=== PATIENT | female | born 1945 | race Caucasian/White ===

== ENCOUNTER 2019-02-26 16:25 | Emergency (ER) | payer MEDICARE, OTHER ==
[~2019-02-26] VITALS: Ht 157.5 cm; Wt 98.4 kg
[~2019-02-26 16:25] MED LIST: Adalat Cc90 MG PO; FURO80 PO; METO2.5 PO; METO25 PO; Novolog100 UNIT/2 SC; Prinivil10 MG PO
[2019-02-26] MEDS ORDERED: Humalog100 UNIT/1 (16:44)
[2019-02-26] MEDS ORDERED: INSULANPEN SC (16:44)
== END 2019-02-26 17:20 | disposition home or self-care (01) ==
LOC: ER 16:25
DX: R55 Syncope and collapse (principal); I12.0 Hypertensive chronic kidney disease with stage 5 chronic kidney disease or end stage renal disease; N18.6 End stage renal disease; E11.22 Type 2 diabetes mellitus with diabetic chronic kidney disease
CPT/HCPCS: 93005; 93010; 99284-25

== ENCOUNTER → 2019-03-21 | Outpatient (CLI) | payer MEDICARE, OTHER ==
[~2019-03-21] MED LIST changes: +Humalog100 UNIT/1; +INSULANPEN SC
[2019-03-21 13:47] LABS: Adenovirus F 40/41 Not Detected (NOT DETECT); Astrovirus Not Detected (NOT DETECT); Campylobacter Sp Not Detected (NOT DETECT); Cryptosporidium Not Detected (NOT DETECT); Cyclospora Cayetanensis Not Detected (NOT DETECT); E. Coli O157 Not Detected (NOT DETECT); Entamoeba Histolytica Not Detected (NOT DETECT); Enteroaggregative E. coli-EAEC Not Detected (NOT DETECT); Enteropathogenic E. coli-EPEC Not Detected (NOT DETECT); Enterotoxigenic E. coli-ETEC Not Detected (NOT DETECT); Giardia Lamblia Not Detected (NOT DETECT); Plesiomonas Shigelloides Not Detected (NOT DETECT); Salmonella Sp Not Detected (NOT DETECT); Shiga Toxin-prod E. coli-STEC Not Detected (NOT DETECT); Shigella/Enteroin E. coli-EIEC Not Detected (NOT DETECT); Vibrio Cholerae Not Detected (NOT DETECT); Vibrio Sp Not Detected (NOT DETECT); Yersinia Enterocolitica Not Detected (NOT DETECT)
[2019-03-21 13:48] LABS: Norovirus GI/GII Not Detected (NOT DETECT); Rotavirus A Not Detected (NOT DETECT); Sapovirus Not Detected (NOT DETECT)
== END | disposition home or self-care (01) ==
LOC: LAB DAV 10:45
PROVIDERS: Internal Medicine Nephrology
DX: A04.72 Enterocolitis due to Clostridium difficile, not specified as recurrent (principal)
CPT/HCPCS: 87507

== ENCOUNTER 2019-04-16 07:04 | Day surgery (SDC) | payer MEDICARE, OTHER ==
[~2019-04-16] VITALS: Ht 167.6 cm; Wt 94.0 kg
[~2019-04-16 07:04] MED LIST changes: +ACET325 PO; +DOCU100 PO; -Humalog100 UNIT/1; +LOSA50 PO; +MIRALAX17 GM PO; +NIFE90ER PO
--- NOTE | 2019-04-16 09:03 | NUR ---
PT VERBALIZED UNDERSTANDING OF VERBAL D/C INST. IV REMOVED. -BLEEDING OR SWELLIN R UPPER CHEST AREA. PT TAKEN OUT OF THE HRT CENTER VIA W/C.
[2019-06-11] MEDS ORDERED: FAMO20 PO (10:28)
[2019-06-11] MEDS ORDERED: Roxicodone5 MG PO (10:34)
== END 2019-04-16 09:10 | disposition home or self-care (01) ==
LOC: MHTC 07:04
DX: Z45.2 Encounter for adjustment and management of vascular access device (principal); E11.22 Type 2 diabetes mellitus with diabetic chronic kidney disease; I13.2 Hypertensive heart and chronic kidney disease with heart failure and with stage 5 chronic kidney disease, or end stage renal disease; I50.9 Heart failure, unspecified; N18.6 End stage renal disease; E11.21 Type 2 diabetes mellitus with diabetic nephropathy; E78.5 Hyperlipidemia, unspecified; E66.01 Morbid (severe) obesity due to excess calories; E11.51 Type 2 diabetes mellitus with diabetic peripheral angiopathy without gangrene; Z88.0 Allergy status to penicillin; Z88.5 Allergy status to narcotic agent
CPT/HCPCS: 36589; J1644; J7040

== ENCOUNTER 2019-06-11 13:55 | Observation (INO) | payer MEDICARE ==
[~2019-06-11] VITALS: Ht 157.5 cm; Wt 93.0 kg
[~2019-06-11 13:55] MED LIST changes: +FAMO20 PO; +Roxicodone5 MG PO
[2019-06-11] MEDS ORDERED: Humalog100 UNIT/1 SC (14:25)
[2019-06-11 15:20] LABS: BASOPHILS ABSOLUTE AUTO 0.02 K/mm3 (0.00-0.23); BASOPHILS PERCENT AUTO 0 % (0-2); EOSINOPHILS ABSOLUTE AUTO 0.02 K/mm3 (0.00-0.68); EOSINOPHILS PERCENT AUTO 0 % (0-6); Hematocrit 37.4 % (33.0-51.0); Hemoglobin 11.7 g/dL (11.5-16.0); IMMATURE GRAN ABSOLUTE AUTO 0.06 K/mm3 (0.00-0.10); IMMATURE GRAN PERCENT AUTO 1 % (0-1); LYMPHOCYTES ABSOLUTE AUTO 0.44 K/mm3 (0.84-5.20); LYMPHOCYTES PERCENT AUTO 3 % (21-46); MONOCYTES ABSOLUTE AUTO 0.69 K/mm3 (0.16-1.47); MONOCYTES PERCENT AUTO 5 % (4-13); Mean Corpuscular HGB 31.6 pg (26.0-34.0); Mean Corpuscular HGB Conc 31.3 g/dL (31.5-36.5); Mean Corpuscular Volume 101 fL (80-100); Mean Platelet Volume 9.9 fL (9.1-12.4); NEUTROPHILS ABSOLUTE AUTO 11.76 K/mm3 (1.96-9.15); NEUTROPHILS PERCENT AUTO 90 % (41-73); Platelet Count 244 K/mm3 (150-400); RDW Coefficient Variation 13.6 % (11.7-14.2); RDW Standard Deviation 50.2 fL (35.1-46.3); White Blood Cell Count 12.99 K/mm3 (4.00-11.30)
[2019-06-11 15:37] LABS: International Normalized Ratio 0.97; Prothrombin Time Results 10.3 Sec (9.7-11.5)
[2019-06-11 15:46] LABS: Bun/Creatinine Ratio 8.8 (12.0-20.0); Calcium, Blood 9.2 mg/dL (8.5-10.1); Creatinine, Blood 6.25 mg/dL (0.40-1.00)
--- NOTE | 2019-06-11 16:48 | NUR ---
PT ADMITTED TO ROOM 304 AT 1605 FROM FILTERING MACHINE TENDER HAVING PERMACATH PLACED RIJ- ORDRE FROM DR REECE TO USE DIALYSIS CATH. CALLED DR LAURENT HANKS CONSULT- CALLED MARY JANE FROM DIALYSIS LAB TO COME RUN PT. CATH SITE WNL WITH GAUZE DRESSING NO MEMATOME, SITE SOFT, NO BLEEDING. L ARM IN IMMOBILIZER. STATES PAIN 03/13- DR LAY AT BEDSIDE. WILL WRITE ADDIDIONAL ORDERS. ABLE TO SQUEEZE HANDS, ABBIE N/T, CMS INTACT ALL EXT. LUNGS CLEAR. CALL TO [facility]AY FOR CONSULT L ISAAC DÍAZ, WILL SEE PT AM 06/12.
[2019-06-11 18:29] LABS: Albumin, Blood 3.5 g/dL (3.4-5.0); Anion Gap 6 mmol/L (6-16); Blood Urea Nitrogen 44 mg/dL (8-24); Bun/Creatinine Ratio 9.2 (12.0-20.0); CO2, Blood 32 mmol/L (21-32); Calcium, Blood 9.4 mg/dL (8.5-10.1); Chloride, Blood 97 mmol/L (98-108); Creatinine, Blood 4.78 mg/dL (0.40-1.00); Glomerular Filtration Rate 9 (60-); Glucose, Blood 157 mg/dL (70-99); Phosphorus, Blood 4.3 mg/dL (2.5-4.9); Potassium, Blood 5.1 mmol/L (3.5-5.5); Sodium, Blood 135 mmol/L (136-145)
[2019-06-12 04:43] LABS: BASOPHILS ABSOLUTE AUTO 0.01 K/mm3 (0.00-0.23); BASOPHILS PERCENT AUTO 0 % (0-2); EOSINOPHILS ABSOLUTE AUTO 0.31 K/mm3 (0.00-0.68); EOSINOPHILS PERCENT AUTO 3 % (0-6); Hematocrit 30.3 % (33.0-51.0); Hemoglobin 9.7 g/dL (11.5-16.0); IMMATURE GRAN ABSOLUTE AUTO 0.03 K/mm3 (0.00-0.10); IMMATURE GRAN PERCENT AUTO 0 % (0-1); LYMPHOCYTES PERCENT AUTO 14 % (21-46); MONOCYTES ABSOLUTE AUTO 0.89 K/mm3 (0.16-1.47); MONOCYTES PERCENT AUTO 9 % (4-13); Mean Corpuscular HGB 31.3 pg (26.0-34.0); Mean Platelet Volume 10.1 fL (9.1-12.4); NEUTROPHILS ABSOLUTE AUTO 7.16 K/mm3 (1.96-9.15); NEUTROPHILS PERCENT AUTO 73 % (41-73); Platelet Count 224 K/mm3 (150-400); RDW Coefficient Variation 13.8 % (11.7-14.2); RDW Standard Deviation 48.8 fL (35.1-46.3)
[2019-06-12 04:47] LABS: Mean Corpuscular Volume 98 fL (80-100)
--- NOTE | 2019-06-12 04:58 | NUR ---
SHIFT SUMMARY: PT IS ALERT AND ORIENTED. PT IS CALM AND COOPERATIVE WITH CARE. PT CALLS APPROPRIATELY. PT IS ON BEDREST, USING THE BEDPAN NEEDED. PT REPORTS L. ARM PAIN, MEDICATING PER EMAR. PT DENIES NAUSEA, VOMITING, AND SOB. PT SLEPT VERY LITTLE OVERNIGHT. NO ACUTE CHANGES OR COMPLICATIONS THIS SHIFT. BED IN LOW POSITION, CALL LIGHT WITHIN REACH. WILL CONTINUE TO MONITOR.
[2019-06-12 05:02] LABS: Albumin, Blood 2.8 g/dL (3.4-5.0); Anion Gap 7 mmol/L (6-16); Blood Urea Nitrogen 56 mg/dL (8-24); Bun/Creatinine Ratio 8.3 (12.0-20.0); CO2, Blood 31 mmol/L (21-32); Calcium, Blood 8.5 mg/dL (8.5-10.1); Chloride, Blood 97 mmol/L (98-108); Creatinine, Blood 6.73 mg/dL (0.40-1.00); Glomerular Filtration Rate 6 (60-); Glucose, Blood 175 mg/dL (70-99); Magnesium, Blood 2.2 mg/dL (1.6-2.4); Potassium, Blood 4.8 mmol/L (3.5-5.5); Sodium, Blood 135 mmol/L (136-145)
--- NOTE | 2019-06-12 17:26 | NUR ---
SHIFT SUMMARY NO ACUTE CONCERNS FROM THE PATIENT. DR. APONTE WANTS OT DO ANOTHER CT OF HER SHOULDER IN THE AM IN ORDER TO DETERMINE HOW BAD THE BREAK IS. HE HAS NO URGENT SURGICAL PLANS. HE WOULD LIKE THE PATIENT TO BE UP AND MOVING MUCH THE PAIN WILL LET HER. PATIENT IS HAPPY WITH THIS PLAN AT THIS TIME.
--- NOTE | 2019-06-13 03:40 | NUR ---
NOC SHIFT SUMMARY PT IS PLEASANT AND COOPERATIVE WITH CARE. ADMITTED WITH L HUMERUS AND PELVIC FX. TREATED FOR PAIN PER EMAR. SHE HAS SLEPT OFF AND ON THROUGH THE NIGHT. SHE GETS ANXIOUS AND IS AFRAID OF FALLING OUT OF BED. VSS. PRESENLTY APPEARS TO BE SLEEPING. WILL CONTINUE TO MONITOR.
[2019-06-13 04:38] LABS: Hematocrit 31.5 % (33.0-51.0); Hemoglobin 10.1 g/dL (11.5-16.0)
[2019-06-13 05:01] LABS: Albumin, Blood 2.9 g/dL (3.4-5.0); Anion Gap 8 mmol/L (6-16); Blood Urea Nitrogen 44 mg/dL (8-24); Bun/Creatinine Ratio 8.5 (12.0-20.0); CO2, Blood 32 mmol/L (21-32); Calcium, Blood 8.9 mg/dL (8.5-10.1); Chloride, Blood 97 mmol/L (98-108); Creatinine, Blood 5.19 mg/dL (0.40-1.00); Glomerular Filtration Rate 9 (60-); Glucose, Blood 72 mg/dL (70-99); Magnesium, Blood 2.1 mg/dL (1.6-2.4); Phosphorus, Blood 5.3 mg/dL (2.5-4.9); Potassium, Blood 4.1 mmol/L (3.5-5.5); Sodium, Blood 137 mmol/L (136-145)
--- NOTE | 2019-06-13 16:52 | NUR ---
SHIFT SUMMARY PATIENT IS PLEASANT, EVALUATED BY PT TODAY. DR. APONTE STATED HE WOULD BE BACK TOMORROW TO SEE THE PATIENT FIRST THING IN THE MORNING. NO ACUTE CONCERNS. PATIENTS PAIN HAS BEEN MANAGED MOSTLY WITH REPOSITIONING. AT THIS TIME SHE HAS NO COMPLAINTS AND I WILL CONTINUE TO UPDATE NEEDED.
--- NOTE | 2019-06-14 03:59 | NUR ---
NOC SHIFT SUMMARY PT ADMITTED FOR HUMERUS FX. HER LEFT ARM IN IN AN IMMOBILIZER. SHE HAS BEEN ENCOURAGED TO MOVE ABOUT MUCH TOLERATED THOUGH MOSTLY HAS ONLY MOVED AROUND IN BED. SHE HAS BEEN ASSISTED IN REPOSITOINING THROUGH THE NIGHT. HAS BEEN TREATED FOR PAIN PER EMAR. WAS FOUND TO BE HYPERTENSIVE ON NIGHT VITALS CHECK. CALLED TO HOSPITALIST AND RECIEVED ORDERS FOR HYDRALAZINE AND REQUIP PT COMPLAINED OF LEG CRAMPS WELL. RECHECK BP SYSTOLIC 132. PRESENLTY LYING IN BED AND APPEARS IN NO ACUTE DISTRESS. WILL CONTINUE TO MONITOR.
[2019-06-14 05:22] LABS: Hematocrit 28.3 % (33.0-51.0); Hemoglobin 9.3 g/dL (11.5-16.0)
[2019-06-14 05:42] LABS: Albumin, Blood 2.7 g/dL (3.4-5.0); Anion Gap 9 mmol/L (6-16); Blood Urea Nitrogen 66 mg/dL (8-24); Bun/Creatinine Ratio 10.2 (12.0-20.0); CO2, Blood 28 mmol/L (21-32); Calcium, Blood 8.8 mg/dL (8.5-10.1); Chloride, Blood 97 mmol/L (98-108); Glomerular Filtration Rate 7 (60-); Glucose, Blood 170 mg/dL (70-99); Magnesium, Blood 2.1 mg/dL (1.6-2.4); Phosphorus, Blood 5.6 mg/dL (2.5-4.9); Potassium, Blood 4.8 mmol/L (3.5-5.5); Sodium, Blood 134 mmol/L (136-145)
--- NOTE | 2019-06-14 17:58 | NUR ---
SHIFT SUMMARY PATIENT IS PLEASANT NO ACUTE CONCERNS AT THIS TIME. SHE IS SITTING AT THE BEDSIDE AND WHEN IN BED SHE REQUESTS THAT ALL 4 BEDRAILS ARE UP FOR SAFETY. HER PAIN IS MANAGED WITH PAIN MEDICATIONS, PATIENT IS NON-SURGICAL FRACTURES.
--- NOTE | 2019-06-15 03:36 | NUR ---
NOC SHIFT SUMMARY PT IS PLEASANT AND COOPERATIVE WITH CARE. ANXIOUS AT TIMES. SHE WAS ADMITTED FOR LEFT HIP AND HUMERUS FX. PER ORTHO NOTE, LIKELY TO BE TREATED NONSURGICALLY. SHE HAS BEEN TREATED FOR PAIN PER EMAR TO GOOD EFFECT. BP SYSTOLIC OVER 160, TREATED PER EMAR. SHE WAS HELPED TO THE BEDSIDE COMODE DURING SHIFT CHANGE. WHILE THIS WAS DIFFICULT FOR HER, HER MOBILITY SEEMS TO BE SLIGHTLY IMPROVED COMPAIRED TO PREVIOUS NIGHTS. AT THIS TIME APPEARS IN NO ACUTE DISTRESS. WILL CONTINUE TO MONITOR.
[2019-06-15 04:24] LABS: Hematocrit 27.3 % (33.0-51.0); Hemoglobin 8.8 g/dL (11.5-16.0)
[2019-06-15 04:41] LABS: Albumin, Blood 2.5 g/dL (3.4-5.0); Anion Gap 8 mmol/L (6-16); Blood Urea Nitrogen 55 mg/dL (8-24); Bun/Creatinine Ratio 11.1 (12.0-20.0); CO2, Blood 32 mmol/L (21-32); Calcium, Blood 8.7 mg/dL (8.5-10.1); Chloride, Blood 99 mmol/L (98-108); Creatinine, Blood 4.96 mg/dL (0.40-1.00); Glomerular Filtration Rate 9 (60-); Glucose, Blood 118 mg/dL (70-99); Magnesium, Blood 2.2 mg/dL (1.6-2.4); Phosphorus, Blood 5.1 mg/dL (2.5-4.9); Potassium, Blood 4.1 mmol/L (3.5-5.5); Sodium, Blood 139 mmol/L (136-145)
--- NOTE | 2019-06-15 19:34 | NUR ---
SHIFT SUMMARY PT WORKED WITH PHYSICAL THERAPY THIS SHIFT. PT SAT UP IN CHAIR FOR LUNCH AND DINNER. PT CALLS APPROPRIATELY. MEDICATED FOR PAIN X2 THIS SHIFT. NO ACUTE CHANGES. CALL LIGHT IN REACH AND BED ALARM ON FOR SAFETY. REPORT GIVEN TO GILA MARTINEZ.
[2019-06-16 04:59] LABS: Hematocrit 27.5 % (33.0-51.0); Hemoglobin 8.8 g/dL (11.5-16.0)
[2019-06-16 05:21] LABS: Albumin, Blood 2.6 g/dL (3.4-5.0); Anion Gap 10 mmol/L (6-16); Blood Urea Nitrogen 77 mg/dL (8-24); Bun/Creatinine Ratio 12.1 (12.0-20.0); CO2, Blood 27 mmol/L (21-32); Calcium, Blood 8.9 mg/dL (8.5-10.1); Chloride, Blood 97 mmol/L (98-108); Creatinine, Blood 6.39 mg/dL (0.40-1.00); Glomerular Filtration Rate 7 (60-); Glucose, Blood 90 mg/dL (70-99); Magnesium, Blood 2.1 mg/dL (1.6-2.4); Phosphorus, Blood 6.1 mg/dL (2.5-4.9); Potassium, Blood 4.2 mmol/L (3.5-5.5); Sodium, Blood 134 mmol/L (136-145)
--- NOTE | 2019-06-16 06:09 | NUR ---
SUMMARY: A/OX4, CALLS APPROPRIATELY AND SPECIFIES NEEDS. SHE WAS MEDICATED W/NORCO X1 FOR TOLERABLE CONTROL OF L.HIP PAIN. PT USED 50% WT.BEARING AND HEMIWALKER W/ASSISST OOB. SHE REMAINS ANXIOUS REGARDING GETTING UP BUT DID BETTER W/ENCOURAGEMENT. SHE ALSO USED BEDPAN PER REQUEST AT TIMES. WAS HERE AT START OF SHIFT TO DISCUSS HER CARE BUT NO CHANGES WERE MADE. NO ACUTE CHANGES, VSS/AFEBRILE. PT TO HAVE HEMODIALYSIS TODAY W/FISTULA PRESENT TO L.ARM, THRILLS/BRUITS INTACT. PT DENIED COMPLAINTS OTHER THEN SINLE EPISODE OF PAIN. WCTM AND REPORT TO DAY RN.
--- NOTE | 2019-06-16 16:42 | NUR ---
SHIFT SUMMARY PT WORKED WITH PHYSICAL THERAPY THIS SHIFT. PT HAS BEEN IN CHAIR FOR ALL MEALS. MEDICATED FOR PAIN X2 PER EMAR THIS SHIFT. PT HAD DIALYSIS THIS AM. DR. APONTE INTO SEE PT THIS EVENING. NO NEW ORDERS AT THIS TIME. NO ACUTE CHANGES THIS SHIFT. CALL LIGHT IN REACH. WILL CONTINUE TO MONITOR AND REPORT TO ONCOMING RN.
[2019-06-17 04:58] LABS: Hematocrit 28.3 % (33.0-51.0); Hemoglobin 9.1 g/dL (11.5-16.0)
[2019-06-17 05:13] LABS: Albumin, Blood 2.5 g/dL (3.4-5.0); Anion Gap 10 mmol/L (6-16); Blood Urea Nitrogen 68 mg/dL (8-24); Bun/Creatinine Ratio 12.8 (12.0-20.0); CO2, Blood 30 mmol/L (21-32); Calcium, Blood 8.8 mg/dL (8.5-10.1); Chloride, Blood 98 mmol/L (98-108); Glomerular Filtration Rate 8 (60-); Glucose, Blood 89 mg/dL (70-99); Magnesium, Blood 2.2 mg/dL (1.6-2.4); Phosphorus, Blood 5.4 mg/dL (2.5-4.9); Potassium, Blood 4.3 mmol/L (3.5-5.5); Sodium, Blood 138 mmol/L (136-145)
--- NOTE | 2019-06-17 06:27 | NUR ---
SHIFT SUMMARY: 74 Y/O OBESE FEMALE RESTED COMFORTABLY ALL SHIFT, C/O LEFT PELVIS/HUMERUS PAIN / AND GIVEN NORCO 5/325MG PO X 1 WITH PAIN RELIEF FELT, ALERT AND ORIENTED X4, BED ALARM APPLIED, BED LOW POSITION, CALL LIGHT AT SIDE.
--- NOTE | 2019-06-17 19:08 | NUR ---
PT. UP IN CHAIR, HAS BEEN THERE MOST OF THE DAY. DR. APONTE ORDERED HIP XRAY WHICH WAS DONE TODAY. HAVE NOT HAD TO COVER BEFORE MEAL BLOOD SUGARS TODAY BUT HAVE GIVEN THE 5 UNITS POST MEAL. ARMAND CLAUDIO TALKING ABOUT PT. GOOING TO FOSTER CARE. PT. AGREEABLE
--- NOTE | 2019-06-18 04:38 | NUR ---
SHIFT SUMMARY: 74 Y/O FEMALE RESTED COMFORTABLY ALL SHIFT, PT UTILIZED BSC AND REQUIRED ASSISTANCE X 2 WITH PATIENT ONLY ABLE TO STAND AND TRANSFER SHORT DISTANCE, C/O LEFT HIP PAIN RATED 6/10 AND GIVEN NORCO 5/325MG PO X 1 WITH PAIN RELIEF FELT, HAPPY AND COOPERATIVE, ALERT AND ORIENTED X 4; BED ALARM APPLIED, BED LOW POSITION, CALL LIGHT AT SIDE DIALYSIS PENDING FOR TODAY.
--- NOTE | 2019-06-18 19:15 | NUR ---
PT. BACK IN BE AFTER BEING UP FOR DINNER. PT. TO DIALYSIS TODAY AT 0900 AND CAME BACK AT 1234. 1500 ML REMOVED. IMMOBILIZER ON HANDY LOSENED AND CLEANED UNDER, BECOMING RED IN AREA POWDER APPLIED. IMMOBILIZER TO BE KEPT ON ALWAYS. CAN REMOVE WHEN PT UP IN CHAIR ONLY AND ARM NEEDS TO BE KEPT STRAIGHT. CAN CLEAN UNDER IMMOBILIZER AND PLACE BACK IMMEDIATELY AFTER SHE DRIES. PER DR. APONTE. NO OTHER NOTEABLE CHANGES.
--- NOTE | 2019-06-18 22:33 | NUR ---
DR MANCILLA AT BEDSIDE
--- NOTE | 2019-06-19 04:03 | NUR ---
SHIFT SUMMARY: 74 Y/O OBESE MALE RESTED COMFORTABLY ALL SHIFT, PT GIVEN COMPLETE BED BATH AT BEGINNING OF SHIFT BY CRUZITO AND THIS NURSE, PTS NOTED TO HAVE BILATERAL FEET WITH LONG TOE NAILS THAT ARE THICK, LONG AND REQUIRE PODIATRY CONSULT, ABLE TO STAND, PIVOT AND TRANSFER TO BSC X 2 ASSIST WITH DEVON WALKER WITH MUCH STRUGGLE EACH TIME, C/O LEFT HIP/ARM PAIN 6/10 WITH NORCO X 1 GIVEN TWICE WITH PAIN RELIEF FELT, DENIES NAUSEA, ALERT AND ORIENTED X 4, BED LOW POSITION, CALL LIGHT AT SIDE, REPORT GIVEN TO MICHELLE MARKHAM.
[2019-06-19 05:04] LABS: Hematocrit 28.5 % (33.0-51.0); Hemoglobin 9.1 g/dL (11.5-16.0)
[2019-06-19 05:34] LABS: Albumin, Blood 2.5 g/dL (3.4-5.0); Anion Gap 11 mmol/L (6-16); Blood Urea Nitrogen 62 mg/dL (8-24); Bun/Creatinine Ratio 14.4 (12.0-20.0); CO2, Blood 29 mmol/L (21-32); Calcium, Blood 8.6 mg/dL (8.5-10.1); Chloride, Blood 101 mmol/L (98-108); Creatinine, Blood 4.32 mg/dL (0.40-1.00); Glomerular Filtration Rate 11 (60-); Glucose, Blood 78 mg/dL (70-99); Magnesium, Blood 2.2 mg/dL (1.6-2.4); Phosphorus, Blood 5.2 mg/dL (2.5-4.9); Potassium, Blood 4.1 mmol/L (3.5-5.5); Sodium, Blood 141 mmol/L (136-145)
--- NOTE | 2019-06-19 06:35 | NUR ---
pt continues to co lt pelvis lt hip, lt shoulder and lt humerus pain. Medicated with tylenol 650 mg for breakthrough pain with helpful effect. She co constipation and 10 mg dulcolax tabs given for constipation. await effect.
--- NOTE | 2019-06-19 19:04 | NUR ---
SHIFT SUMMARY NO ACUTE CONCERNS FROM THE PATIENT AT THIS TIME. SHE DENIES PAIN AND IS WORKING ONE PERSON ASSIST TO THE BEDSIDE COMMODE. CURRENTLY IN THE RECLINER WHICH HAS MADE HER MORE COMFORTABLE.
--- NOTE | 2019-06-20 04:16 | NUR ---
SHIFT SUMMARY: 74 Y/O OBESE FEMALE UTILIZED BSC AND SAT IN CHAIR FEW HOURS THIS SHIFT AND REQUIRED ONE STANDBY ASSIST WITH GAIT BELT AND DEVON-WALKER, C/O LEFT HIP PAIN RATED 6/10 AND TOOK NORCO 5/325MG PO X 1 WITH PAIN RELIEF FELT, DENIES NAUSEA, ALERT AND ORIENTED X 4, WEARING LEFT ARM IMMOBILIZER, BED LOW POSITION, CALL LIGHT AT SIDE.
[2019-06-20 04:46] LABS: Hematocrit 27.1 % (33.0-51.0); Hemoglobin 8.7 g/dL (11.5-16.0)
[2019-06-20 05:05] LABS: Magnesium, Blood 2.2 mg/dL (1.6-2.4)
[2019-06-20 05:06] LABS: Albumin, Blood 2.5 g/dL (3.4-5.0); Anion Gap 9 mmol/L (6-16); Blood Urea Nitrogen 60 mg/dL (8-24); Bun/Creatinine Ratio 14.8 (12.0-20.0); CO2, Blood 29 mmol/L (21-32); Calcium, Blood 8.8 mg/dL (8.5-10.1); Chloride, Blood 102 mmol/L (98-108); Creatinine, Blood 4.06 mg/dL (0.40-1.00); Glomerular Filtration Rate 11 (60-); Glucose, Blood 93 mg/dL (70-99); Phosphorus, Blood 4.7 mg/dL (2.5-4.9); Potassium, Blood 4.2 mmol/L (3.5-5.5); Sodium, Blood 140 mmol/L (136-145)
--- NOTE | 2019-06-20 17:16 | NUR ---
PATIENT IS ALERT AND ORIENTED AND COOPERATIVE WITH CARE. LEFT HIP PAIN TREATED PER EMAR AT PATIENTS REQUEST. PATIENT HAS COMPLAINED OF FEELING CONSTIPATED, PRN STOOL SOFTENERS WERE GIVEN WITH MORNING MEDS AND A PRUNE JUICE WAS GIVEN TO THE PATIENT. NO DIALYSIS TODAY. SHE WORKED WITH PHYSICAL THERAPY TODAY, 2PA TRANSFERRING FROM BSC, 1PA WHEN TRANSFERRING FROM BED TO CHAIR. IMMOBILIZER TO LEFT ARM. WILL CONTINUE TO MONITOR
--- NOTE | 2019-06-21 00:50 | NUR ---
PT HAD LARGE BM X 5 THIS SHIFT AND NOW HAVING DIARRHEA, DR MARISCAL NOTIFIED WITH ORDERS IMODIUM 4MG X 1 NOW.
--- NOTE | 2019-06-21 04:50 | NUR ---
SHIFT SUMMARY: 74 Y/O FEMALE C/O BEGINING OF SHIFT OF NO BM IN "LONG TIME" AND VOICED THAT THE STOOL SOFTENERS WERE NOT WORKING, DRANK PRUNE/APPLE JUICE WARMED UP WITH 3 TABLESPOONS OF BUTTER THAT WAS WARMED IN MICROWAVE, PT HAD BM X 5 LARGE FORMED BROWN STOOL FOLLOWED BY DIARRHEA X 3, DR MARISCAL NOTIFIED WITH IMODIUM 4MG PO GIVEN WITH NO MORE DIARRHEA NOTED, PT VOICED THAT SHE FEELS ALOT BETTER, C/O LEFT HIP PAIN RATED 6/10 WITH NORCO 5/325MG PO GIVEN WITH PAIN RELIEF FELT, DENIES NAUSEA, ABLE TO STAND, PIVOT AND TRANSFER TO BSC X 1 STANDBY ASSIST WITH ACTIVITY TOLERATED WELL, ALERT AND ORIENTED X 4, BED LOW POSITION, CALL LIGHT AT SIDE.
[2019-06-21 05:03] LABS: BASOPHILS ABSOLUTE AUTO 0.01 K/mm3 (0.00-0.23); BASOPHILS PERCENT AUTO 0 % (0-2); EOSINOPHILS ABSOLUTE AUTO 0.33 K/mm3 (0.00-0.68); EOSINOPHILS PERCENT AUTO 3 % (0-6); Hematocrit 28.1 % (33.0-51.0); IMMATURE GRAN ABSOLUTE AUTO 0.11 K/mm3 (0.00-0.10); IMMATURE GRAN PERCENT AUTO 1 % (0-1); LYMPHOCYTES PERCENT AUTO 15 % (21-46); MONOCYTES ABSOLUTE AUTO 0.96 K/mm3 (0.16-1.47); MONOCYTES PERCENT AUTO 8 % (4-13); Mean Corpuscular HGB 30.7 pg (26.0-34.0); Mean Corpuscular Volume 96 fL (80-100); Mean Platelet Volume 9.5 fL (9.1-12.4); NEUTROPHILS ABSOLUTE AUTO 8.56 K/mm3 (1.96-9.15); NEUTROPHILS PERCENT AUTO 73 % (41-73); Platelet Count 306 K/mm3 (150-400); RDW Coefficient Variation 13.5 % (11.7-14.2); RDW Standard Deviation 48.1 fL (35.1-46.3); Red Blood Cell Count 2.93 M/mm3 (3.80-5.20); White Blood Cell Count 11.67 K/mm3 (4.00-11.30)
[2019-06-21 05:26] LABS: Albumin, Blood 2.7 g/dL (3.4-5.0); Anion Gap 8 mmol/L (6-16); Blood Urea Nitrogen 77 mg/dL (8-24); Bun/Creatinine Ratio 15.9 (12.0-20.0); CO2, Blood 27 mmol/L (21-32); Calcium, Blood 9.1 mg/dL (8.5-10.1); Chloride, Blood 101 mmol/L (98-108); Creatinine, Blood 4.84 mg/dL (0.40-1.00); Glomerular Filtration Rate 9 (60-); Glucose, Blood 98 mg/dL (70-99); Phosphorus, Blood 5.3 mg/dL (2.5-4.9); Potassium, Blood 4.6 mmol/L (3.5-5.5); Sodium, Blood 136 mmol/L (136-145)
--- NOTE | 2019-06-21 18:53 | NUR ---
SHIFT SUMMARY PATIENT SLEPT IN, THEN SAT IN CHAIR MOST OF THE DAY. SHE C/O MODERATE L HIP AND L SHOULDER PAIN, RECEIVING NORCO Q4 WHICH CONTROLLED HER PAIN. +2 PULSES AND GOOD SENSATION IN ALL EXTREMITIES. OPEN COCCYX WOUND/EXCORIATION WAS CLEANED AND PROTECTIVE CREAM APPLIED. PT HAD A COUPLE SOFT STOOLS IN SHIFT. BLOOD SUGARS WNL, VSS. PT TRANSFERS TO COMMODE WITH 1 ASSIST AND 4 FOOTED CANE. PT CALLS APPROPRIATELY, CALL LIGHT IN REACH.
--- NOTE | 2019-06-22 03:51 | NUR ---
SUMMARY: A/OX4, SPECIFIES NEEDS AND COOPERATIVE W/CARE. SHE'S BEEN MEDICATED W/NORCO PRN X2 DOSES FOR TOLERABLE CONTROL OF L.HUMERUS AND L.HIP PAIN POST FX'S. PT REPOSITIONS SELF IN BED AND IS 50% WT.BEARING W/SBA AND HEMIWALKER TO BSC. SHE HAD X3 BM'S THIS SHIFT AND MAY NEED IMMODIUM AGAIN IF NO IMPROVEMENT. EXCORIATION PERSISTS TO BUTTOCKS AND CREAM APPLIED PRN. FISTULA PRESENT TO L.ARM W/THRILLS AND BRUITS INTACT. PERMACATH PRESENT TO R.CW AND POSSIBLE DIALYSIS THIS AM. NO ACUTE CHANGES, VSS/AFEBRILE. PLACEMENT STILL PENDING. WCTM AND REPORT TO DAY RN.
[2019-06-22 04:43] LABS: BASOPHILS ABSOLUTE AUTO 0.02 K/mm3 (0.00-0.23); BASOPHILS PERCENT AUTO 0 % (0-2); EOSINOPHILS ABSOLUTE AUTO 0.46 K/mm3 (0.00-0.68); EOSINOPHILS PERCENT AUTO 5 % (0-6); Hematocrit 27.5 % (33.0-51.0); Hemoglobin 8.7 g/dL (11.5-16.0); IMMATURE GRAN ABSOLUTE AUTO 0.07 K/mm3 (0.00-0.10); IMMATURE GRAN PERCENT AUTO 1 % (0-1); LYMPHOCYTES ABSOLUTE AUTO 1.69 K/mm3 (0.84-5.20); LYMPHOCYTES PERCENT AUTO 17 % (21-46); MONOCYTES ABSOLUTE AUTO 0.85 K/mm3 (0.16-1.47); MONOCYTES PERCENT AUTO 9 % (4-13); Mean Corpuscular HGB 31.3 pg (26.0-34.0); Mean Corpuscular HGB Conc 31.6 g/dL (31.5-36.5); Mean Platelet Volume 9.5 fL (9.1-12.4); NEUTROPHILS ABSOLUTE AUTO 6.64 K/mm3 (1.96-9.15); NEUTROPHILS PERCENT AUTO 68 % (41-73); Platelet Count 298 K/mm3 (150-400); RDW Coefficient Variation 13.4 % (11.7-14.2); RDW Standard Deviation 48.6 fL (35.1-46.3); Red Blood Cell Count 2.78 M/mm3 (3.80-5.20); White Blood Cell Count 9.73 K/mm3 (4.00-11.30)
[2019-06-22 04:47] LABS: Mean Corpuscular Volume 99 fL (80-100)
[2019-06-22 05:02] LABS: Albumin, Blood 2.7 g/dL (3.4-5.0); Anion Gap 9 mmol/L (6-16); Blood Urea Nitrogen 94 mg/dL (8-24); Bun/Creatinine Ratio 16.5 (12.0-20.0); CO2, Blood 27 mmol/L (21-32); Calcium, Blood 8.9 mg/dL (8.5-10.1); Chloride, Blood 101 mmol/L (98-108); Glomerular Filtration Rate 8 (60-); Glucose, Blood 85 mg/dL (70-99); Magnesium, Blood 2.2 mg/dL (1.6-2.4); Phosphorus, Blood 5.9 mg/dL (2.5-4.9); Potassium, Blood 4.8 mmol/L (3.5-5.5); Sodium, Blood 137 mmol/L (136-145)
--- NOTE | 2019-06-22 18:23 | NUR ---
PT HAD DIALYSIS THIS MORNING AND RECEIVED 1 UNIT PRBC WITH HD. MEDICATED FOR PAIN X2 TODAY WITH GOOD EFFECT BOTH TIMES. NO ACUTE CHANGES NOTED THIS SHIFT, WILL CONTINUE TO MONITOR AND REPORT TO ONCOMING RN
--- NOTE | 2019-06-23 06:10 | NUR ---
SUMMARY: A/OX4, CALLS APPROPRIATELY AND SPECIFIES NEEDS. PT IS SBA W/DEVON- WALKER AND 50% [place] [facility] [place] SHE WAS MEDICATED W/NORCO AND TYLENOL PRN FOR TOLERABLE CONTROL OF L.HUMERUS AND L.HIP PAIN. EXCORIATION TO BUTTOCKS IMPROVING AND CREAM APPLIED PRN. PERMACATH IS PRESENT TO R.CW W/DX REMAINING C/D/I. L.ARM FISTULA W/THRILLS AND BRUITS ARE INTACT. NO ACUTE CHANGES. VSS AND AFEBRILE. PLACEMENT PENDING. WCTM AND REPORT TO DAY RN.
--- NOTE | 2019-06-23 19:19 | NUR ---
PT TO X RAY VIA GURNEY.
[2019-06-24 05:01] LABS: Hematocrit 28.1 % (33.0-51.0); Hemoglobin 9.1 g/dL (11.5-16.0)
[2019-06-24 05:25] LABS: Albumin, Blood 2.6 g/dL (3.4-5.0); Anion Gap 11 mmol/L (6-16); Blood Urea Nitrogen 78 mg/dL (8-24); Bun/Creatinine Ratio 14.8 (12.0-20.0); CO2, Blood 26 mmol/L (21-32); Calcium, Blood 8.9 mg/dL (8.5-10.1); Chloride, Blood 103 mmol/L (98-108); Creatinine, Blood 5.27 mg/dL (0.40-1.00); Glomerular Filtration Rate 8 (60-); Glucose, Blood 78 mg/dL (70-99); Magnesium, Blood 2.2 mg/dL (1.6-2.4); Phosphorus, Blood 4.9 mg/dL (2.5-4.9); Potassium, Blood 4.8 mmol/L (3.5-5.5); Sodium, Blood 140 mmol/L (136-145)
--- NOTE | 2019-06-24 06:18 | NUR ---
SHIFT SUMMARY PT WITH L HUMERAL FX AND LLEVIC FX; 50% WB TO LLE, NWB TO LUE. LUE IN SLING. PT USING HEMIWALKER FOR AMBULATION AND REQUIRES MINIMAL ASSISTANCE WITH TRANSFER/ADLS/AMBULATION. C/O PAIN TO LLE, TREATED TWICE WITH 5M PO NORCO, PROVIDES ADEQUATE RELIEF. FISTULA TO HANDY, PERMACATH TO R CHEST WALL. CBG MONITOR ACHS, NO COV INDICATED TONIGHT. PT IS A&O, CALM/COOPERATIVE WITH CARE. PT HAD XRAY OF L PELVIS AND L SHOULDER LAST NIGHT, RESULTS PENDING AT THIS TIME. WILL CONT TO MONITOR AND PROVIDE CARE UNTIL PRESUMED BY ONCOMING RN.
--- NOTE | 2019-06-24 18:01 | NUR ---
NO ACUTE CHANGES THIS SHIFT. PATIENT UP WITH HEMIWALKER TO CHAIR, 50% WB TO LLE. L ARM IN A SLING. NORCO GIVEN X2 THIS SHIFT TO TREAT PAIN WITH STATED RELIEF. TOLERATING ADA DIET. VSS, ON RA. WENT DOWN FOR DIALYSIS TODAY. CALM AND COOPERATIVE WITH CARE, CALLS APPROPRIATELY FOR ASSISTANCE.
[2019-06-25 04:42] LABS: Hematocrit 27.2 % (33.0-51.0); Hemoglobin 8.7 g/dL (11.5-16.0)
[2019-06-25 04:59] LABS: Albumin, Blood 2.5 g/dL (3.4-5.0); Anion Gap 7 mmol/L (6-16); Blood Urea Nitrogen 65 mg/dL (8-24); Bun/Creatinine Ratio 14.9 (12.0-20.0); CO2, Blood 30 mmol/L (21-32); Calcium, Blood 8.7 mg/dL (8.5-10.1); Chloride, Blood 106 mmol/L (98-108); Creatinine, Blood 4.36 mg/dL (0.40-1.00); Glomerular Filtration Rate 11 (60-); Glucose, Blood 79 mg/dL (70-99); Magnesium, Blood 2.2 mg/dL (1.6-2.4); Phosphorus, Blood 3.9 mg/dL (2.5-4.9); Potassium, Blood 4.9 mmol/L (3.5-5.5); Sodium, Blood 143 mmol/L (136-145)
--- NOTE | 2019-06-25 06:04 | NUR ---
SHIFT SUMMARY NO ACUTE CHANGES TONIGHT. LUE REMAINS IN SLING AND NWM. LLE IS 50 % NWM, PT USING HEMIWALKER FOR AMBULATION; SBA. VSS, AFEBRILE. TREATED FOR PAIN ONCE WITH 5MG PO NORCO PRN, PT REPORTS ADEQUATE RELIEF. CALL LT IN REACH, ABLE TO MAKE NEEDS KNOWN. WILL CONT TO MONITOR AND PROVIDE CARE UNTIL PRESUMED BY ONCOMING RN.
--- NOTE | 2019-06-25 17:01 | NUR ---
PATIENT A/OX4, CALM AND COOPERATIVE WITH CARE. WBAT NOW TO LLE, NWB TO LUE WITH IMMOBILIER IN PLACE. VSS, ON RA. NORCO GIVEN X1 THIS SHIFT WITH STATED RELIEF OF L HIP PAIN. UP TO BSC WITH HEMIWALKER AND 1 ASSIST. 20G IV TO R AC WNL AND SL. ACHS BLOOD SUGARS, ADA DIET. MULTIPLE BRUSIES TO ABDOMEN AND ARM FROM INSULIN AND HEPARIN INJECTIONS , OTHERWISE SKIN INTACT. WORKING WITH PT/OT.
[2019-06-26 04:48] LABS: Hematocrit 28.3 % (33.0-51.0)
[2019-06-26 05:04] LABS: Albumin, Blood 2.8 g/dL (3.4-5.0); Anion Gap 10 mmol/L (6-16); Blood Urea Nitrogen 82 mg/dL (8-24); CO2, Blood 26 mmol/L (21-32); Calcium, Blood 8.7 mg/dL (8.5-10.1); Chloride, Blood 103 mmol/L (98-108); Creatinine, Blood 5.13 mg/dL (0.40-1.00); Glomerular Filtration Rate 9 (60-); Glucose, Blood 108 mg/dL (70-99); Magnesium, Blood 2.2 mg/dL (1.6-2.4); Phosphorus, Blood 4.5 mg/dL (2.5-4.9); Potassium, Blood 4.9 mmol/L (3.5-5.5); Sodium, Blood 139 mmol/L (136-145)
--- NOTE | 2019-06-26 06:04 | NUR ---
SHIFT SUMMARY PT IS WBAL TO LLE, AND STRICT NWB TO LUE TONIGHT. PT HAS BEEN ABLE TO BARE ABOUT 75% OF WEIGHT ON LLE AND IS USING HEMIWALKER FOR AMBULATION. PT REPORTS FEELING STRONGER AND MORE CONFIDENT IN HER ABILITY TO COMPLETE ADLs INDEPENDENTLY UPON D/C. TREATED FOR PAIN 2X THIS SHIFT WITH PRN NORCO, PROVIDES RELIEF. PT TO HAVE DIALYSIS TODAY WITH ONE UNIT OF PRBC's PER DR MANCILLA. CBG 213 TONIGHT, ADMNISTERED INSULIN PER ORDERS, SEE EMAR. NO OTHER CHANGES TO REPORT. WILL CONT TO MONITOR AND PROVIDE CARE UNTIL PRESUMED BY ONCOMING RN.
--- NOTE | 2019-06-26 09:19 | NUR ---
PT DOWN TO DIALYSIS
[2019-06-26] MEDS ORDERED: ASPI81CH PO (14:04)
[2019-06-26] MEDS ORDERED: Humalog100 UNIT/1 SC (14:05)
[2019-06-26] MEDS ORDERED: ROPI.25 PO (14:06)
[2019-06-26] MEDS ORDERED: MELA3 PO (14:06)
[2019-06-26] MEDS ORDERED: HYDR1TAB94 PO (14:23)
--- NOTE | 2019-06-26 17:06 | NUR ---
SUMMARY PT BEING DISCHARGED TO HOME WITH HOME HEALTH, PT PREFERS [facility], DISCHARGE PLANNING AWARE, PT VERBALIZED UNDERSTANDING OF DISCHARGE INSTRUCTIONS REGARDING FOLLOW UP, TRANSPORTATION, AND MEDICATIONS, TRANSPORTATION SET UP BY CARE MANAGEMENT, CURRENTLY WAITING FOR IT
--- NOTE | 2019-06-26 17:33 | NUR ---
PT TAKEN OUT SAFELY VIA WHEELCHAIR
== END 2019-06-26 17:20 | disposition home health service (06) ==
LOC: ER 13:55 → MEDS 13:56
PROVIDERS: Emergency Medicine; Internal Medicine Nephrology; ADMIT Internal Medicine
DX: S42.212A Unspecified displaced fracture of surgical neck of left humerus, initial encounter for closed fracture (principal); S42.352A Displaced comminuted fracture of shaft of humerus, left arm, initial encounter for closed fracture; S32.592A Other specified fracture of left pubis, initial encounter for closed fracture; S72.002A Fracture of unspecified part of neck of left femur, initial encounter for closed fracture; E11.22 Type 2 diabetes mellitus with diabetic chronic kidney disease; I12.9 Hypertensive chronic kidney disease with stage 1 through stage 4 chronic kidney disease, or unspecified chronic kidney disease; N18.6 End stage renal disease; D63.1 Anemia in chronic kidney disease; E87.5 Hyperkalemia; Z99.2 Dependence on renal dialysis; Z88.5 Allergy status to narcotic agent; Z86.79 Personal history of other diseases of the circulatory system; Z88.0 Allergy status to penicillin; W18.30XA Fall on same level, unspecified, initial encounter
CPT/HCPCS: 29105; 36415; 36416; 36430; 36558; 71046; 72192; 73030; 73060; 73070; 73200; 73502; 76377; 76705; 76937; 80048; 80069; 82947; 83735; 84132; 85014; 85018; 85025; 85610; 86850; 86900; 86901; 86923; 96372; 96374; 96374-59; 96375-59; 96376; 97110; 97162; 97166; 97530; 97535; 99152; 99153; 99283-25; 99284-25; A9270; A9270-GY; C1750; C1769; G0257; G0378; J0360; J0881; J1644; J1650; J2250; J2405; J3010; J7030; J7040; P9016

== ENCOUNTER 2019-11-04 09:26 | Inpatient (IN) | payer MEDICARE ==
[~2019-11-04] VITALS: Ht 177.8 cm; Wt 87.9 kg
[~2019-11-04 09:26] MED LIST changes: +ASPI81CH PO; +HYDR1TAB94 PO; +Humalog100 UNIT/1 SC; +MELA3 PO; +ROPI.25 PO
[2019-11-04 10:28] LABS: BASOPHILS ABSOLUTE AUTO 0.01 K/mm3 (0.00-0.23); BASOPHILS PERCENT AUTO 0 % (0-2); EOSINOPHILS PERCENT AUTO 0 % (0-6); Hematocrit 26.8 % (33.0-51.0); IMMATURE GRAN ABSOLUTE AUTO 0.12 K/mm3 (0.00-0.10); IMMATURE GRAN PERCENT AUTO 1 % (0-1); LYMPHOCYTES ABSOLUTE AUTO 0.77 K/mm3 (0.84-5.20); LYMPHOCYTES PERCENT AUTO 5 % (21-46); MONOCYTES ABSOLUTE AUTO 0.84 K/mm3 (0.16-1.47); MONOCYTES PERCENT AUTO 6 % (4-13); Mean Corpuscular HGB 29.1 pg (26.0-34.0); Mean Corpuscular HGB Conc 29.9 g/dL (31.5-36.5); Mean Corpuscular Volume 98 fL (80-100); Mean Platelet Volume 11.3 fL (9.1-12.4); NEUTROPHILS ABSOLUTE AUTO 12.56 K/mm3 (1.96-9.15); NEUTROPHILS PERCENT AUTO 88 % (41-73); Platelet Count 154 K/mm3 (150-400); RDW Coefficient Variation 15.2 % (11.7-14.2); RDW Standard Deviation 54.4 fL (35.1-46.3); Red Blood Cell Count 2.75 M/mm3 (3.80-5.20)
[2019-11-04 10:46] LABS: Albumin, Blood 2.2 g/dL (3.4-5.0); Albumin/Globulin Ratio 0.5 (0.8-1.8); Bilirubin, Total 0.8 mg/dL (0.1-1.0); Bun/Creatinine Ratio 8.4 (12.0-20.0); Calcium, Blood 9.5 mg/dL (8.5-10.1); Creatinine, Blood 3.34 mg/dL (0.40-1.00); Globulin, Blood 4.5 g/dL (2.2-4.0); Potassium, Blood 3.7 mmol/L (3.5-5.5); Total Protein, Blood 6.7 g/dL (6.4-8.2)
[2019-11-04 11:14] LABS: Influenza A Negative (NEGATIVE); Influenza B Negative (NEGATIVE)
[2019-11-04 12:33] LABS: Source, Urine Catheter
[2019-11-04 12:35] LABS: Bilirubin, Urine Neg (Neg); Blood, Urine 2+ (Neg); Glucose Qualitative, Urine Neg (Neg); Ketones, Urine 1+ (Neg); Leukocyte Esterase, Urine 3+ (Neg); Nitrite, Urine Neg (Neg); Protein, Urine 3+ (Neg); Urobilinogen, Urine 1+ (Normal)
[2019-11-04 12:48] LABS: Appearance, Urine Cloudy (Clear); Color, Urine Yellow (P-Yellow); U Amphetamine Screen Not Detected; U Barbituate Screen Not Detected; U Benzodiazapine Screen Not Detected; U Buprenorphine Screen Not Detected; U Cannabinoids Screen Not Detected; U Cocaine Screen Not Detected; U Methadone Screen Not Detected; U Methamphetamine Screen Not Detected; U Opiates Screen Not Detected; U Oxycodone Screen Not Detected; U Phencyclidine Screen Not Detected; U Propoxyphene Screen Not Detected
[2019-11-04 12:49] LABS: Bacteria Many /hpf; Squamous Epithelial Cells Many /hpf (Few)
--- NOTE | 2019-11-04 14:13 | NUR ---
DIALYSIS RECIEVED A CALL FROM DR MANCILLA THAT PT IS BEING ADMITTED AND NEEDED DIALYSIS. TURNED ON TRAVELER (MACHINE) AND STARTED GETTING IT READY FOR TS. CHECKED WITH PCU ABOUT STATUS OF PT. WAITING FOR REPORT.
--- NOTE | 2019-11-04 18:04 | NUR ---
174 PT HAD A FEW RUNS OF 6-7 BEATS OF V-TACH, ASYMPTOMATIC. DR MARISCAL NOTIFIED OF PT'S STATUS. WANTS US TO CONTINUE TO MONITOR PT.
--- NOTE | 2019-11-04 23:00 | NUR ---
NO IV ACCESS PATIENT'S IV APPEARED TO HAVE INFILTRATED WHEN ASSESSED BY THIS RN. APPROX 2 INCHES AROUND IV SITE TO LEFT AC APPEARED RED AND HARD. POSSIBLE VANCO INFILITRATION. PHARMACIST SHAHEEN NOTIFIED AND SHE SAID TO PLACE AN ICE PACK ON THE RED AREA. ICE PACK PLACED BUT PATIENT HAS NOT KEPT IT ON HER LEFT AC PATIENT KEEPS MOVING HER ARM, ICE PACK REPLACED SEVERAL TIMES SO FAR. PATIENT DENIES ANY PAIN TO SITE AT THIS TIME. IV ANTIBIOTIC GENTAMICIN HAD JUST BEEN HUNG WHEN IV WAS NOTED TO BE INFILTRATED. GENTAMICIN STILL NEEDS TO BE RUN, NURSE PRACTIONER YURY AWARE THAT THIS ABX HAS NOT YET BEEN GIVEN. DUMP OPERATOR ATTEMPTED TO REPLACE IV WITH NO SUCCESS, WAITING ON CHEMICAL PLANT OPERATOR TO TO PLACE AN IV WITH THE ULTRASOUND MACHINE. SUBLINQUAL ZOFRAN OBTAINED FOR NAUSEA WHILE NO IV ACCESS. WILL CONTINE TO MONITOR.
--- NOTE | 2019-11-05 00:45 | NUR ---
POSITIVE BLOOD CULTURES NURSE PRACTIONIER YURY HERNANDEZ NOTIFIED OF POSITIVE BLOOD CULTURES. NO ORDERS RECIEVED AT THIS TIME.
--- NOTE | 2019-11-05 03:26 | NUR ---
POWER BILL Sarmiento RN CAME OVER FROM SURGICAL AND PLACED A POWER GLIDE IN PATIENT'S RIGHT UPPER ARM. GENTAMICIN NOW INFUSING.
[2019-11-05 06:26] LABS: BASOPHILS ABSOLUTE AUTO 0.02 K/mm3 (0.00-0.23); BASOPHILS PERCENT AUTO 0 % (0-2); EOSINOPHILS PERCENT AUTO 0 % (0-6); Hematocrit 27.6 % (33.0-51.0); Hemoglobin 8.7 g/dL (11.5-16.0); IMMATURE GRAN ABSOLUTE AUTO 0.16 K/mm3 (0.00-0.10); IMMATURE GRAN PERCENT AUTO 1 % (0-1); LYMPHOCYTES ABSOLUTE AUTO 1.99 K/mm3 (0.84-5.20); LYMPHOCYTES PERCENT AUTO 12 % (21-46); MONOCYTES ABSOLUTE AUTO 1.24 K/mm3 (0.16-1.47); MONOCYTES PERCENT AUTO 7 % (4-13); Mean Corpuscular HGB Conc 31.5 g/dL (31.5-36.5); Mean Platelet Volume 11.2 fL (9.1-12.4); NEUTROPHILS ABSOLUTE AUTO 13.68 K/mm3 (1.96-9.15); NEUTROPHILS PERCENT AUTO 80 % (41-73); Platelet Count 143 K/mm3 (150-400); RDW Coefficient Variation 16.9 % (11.7-14.2); RDW Standard Deviation 58.6 fL (35.1-46.3); White Blood Cell Count 17.09 K/mm3 (4.00-11.30)
[2019-11-05 06:28] LABS: Mean Corpuscular Volume 95 fL (80-100)
[2019-11-05 06:50] LABS: Albumin/Globulin Ratio 0.5 (0.8-1.8); Bilirubin, Direct 0.3 mg/dL (0.0-0.3); Bilirubin, Indirect 0.5 mg/dL (0.1-0.7); Bilirubin, Total 0.8 mg/dL (0.1-1.0); Bun/Creatinine Ratio 10.3 (12.0-20.0); Calcium, Blood 8.9 mg/dL (8.5-10.1); Creatinine, Blood 3.69 mg/dL (0.40-1.00); Magnesium, Blood 2.1 mg/dL (1.6-2.4); Phosphorus, Blood 4.9 mg/dL (2.5-4.9); Potassium, Blood 3.8 mmol/L (3.5-5.5); Thyroid Stimulating Hormone 2.5 uIU/mL (0.360-4.800)
--- NOTE | 2019-11-05 07:34 | NUR ---
SHIFT SUMMARY PATIENT PLEASENT BUT APPEARED FORGETFUL THROUGHOUT THE NIGHT. PATIENT OFTEN HAD DIFFICULTY FINDING WORDS. PATIENT KEPT ASKING, "WHY DO I FEEL SO BAD" AND "WHY WON'T IT GET BETTER?" PATIENT DRY HEAVING FREQUENTLY LAST NIGHT, PATIENT MEDICATED ACCORDINGLY PER EMAR. PATIENT APPEARED TO SLEEP ON AND OFF THROUGHOUT THE NIGHT. VITAL SIGNS CHARTED. SWABS PROVIDED FOR COMOFT. PATIENT DOWN FOR A CT SCAN THIS MORNING. PATIENT MEDICATED WITH TYLENOL FOR ELEVATED TEMPS PER EMAR. REPORT GIVEN TO ONCOMING RN.
--- NOTE | 2019-11-05 08:04 | NUR ---
Assumed care Upon assessment, pt lying to right side clutching onto emesis bag and dry heaving. pt alert, following commands, but not oriented to place or situation. Pt states name and accurately. Pt with slurred speech and stutters. Pt states "I don't feel like I can say what I want". Pt with equal strength to bilateral upper extremities. Pt with significant weakness to bilateral lower extremities, unable to lift which is not baseline per pt. Echo in this AM; results to Dr. Horton. Upon assessment, oxygen saturation reads 68% on RA. Pt stating "i feel anxious". immediately 7L Hi flow NC placed and oxygen resolved o 93%. RT called to evaluate and oxymizer placed at 4.5L and oxygen improved to 96%. MD called, awaiting call back to update physician on findings.
--- NOTE | 2019-11-05 08:31 | NUR ---
Dr Dejesus at bedside with pt at this time. Update given to pt about test results. Per Dr. 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 Dr. Dejesus calling pt's son and giving update at this time. Plan of care discussed between pt and MD, probable COBRA transfer necessary.
--- NOTE | 2019-11-05 08:54 | NUR ---
DIALYSIS- DUE TO THE PLAN TO COPRA PT OUT TO ANOTHER [facility], THEY WANTED THE PT ON TX QUICKLY POSSIBLE. QUICKLY GOT MACHINE TO ROOM. THE DR ORDERED A STAT MRI TO BE DONE. LEFT MACHINE IN ROOM, WILL PUT HER ON SOON SHE GETS BACK. 1 UNIT OF PRBC ARE TO BE GIVEN. THEY ARE WORKING ON GETTING HER TRANSFERRED SOON POSSIBLE.
--- NOTE | 2019-11-05 09:29 | NUR ---
Pt down to MRI with transport and o2 running at 3L.
--- NOTE | 2019-11-05 09:38 | NUR ---
Cefepime started, on hold at this time d/t hemodialysis.
--- NOTE | 2019-11-05 10:55 | NUR ---
Pt recieving dialysis; desaturating to 80% on 3.5L oxymizer. Pt requiring 13L Oxymizer to maintain saturations at 93%. head of bed high fowlers; encouraged cough and deep breathing. Pt denies SOB. RT aware.
--- NOTE | 2019-11-05 14:40 | NUR ---
DIALYSIS STARTED THE PT ON TX. RAN FINE FOR ABOUT 30 MIN THEN HAD AIR DETECTOR ALARMS. UNABLE TO CLEAR IT. CHANGED THE SETUP AND HAD TROUBLE AGAIN. SETUP A NEW MACHINE AND RAN THE PT IN A 1 HOUR PUF FOR AN HOUR. GOT 1.5 LITERS OFF.
--- NOTE | 2019-11-05 15:06 | NUR ---
During dialysis, pt continues to desaturate; ultimately requiring a BIPAP at 100% Fio2 to maintain oxygen saturations at 95%. Lungs sounds wet, coarse throughout. Pt had just recieved 1Unit PRBC per orders which ran with dialysis. Pt in moderate respiratory distress prior to BIPAP placement. Pt also with HR sustaining for 20 minutes in 140-150's. MD called, at bedside to evaluate pt within moments of being made aware of acute changes. Orders for 5MG IV lopressor given per orders with resolution of HR back to 100-115. Stat Chest XR ordered and obtained. Pt not tolerating BIPAP, agitated and anxious with mask placement; 0.5 mg IV Ativan ordered and given per orders. No change to agitation. Pt pulling at permicath, lines, mask. Bilateral wrist restaints ordered by MD and placed per orders to ensure pt safety. 1,500 ml's taken off during dialysis. After fluid removed, pt breathing improves, agitation improves, and can be placed on Oxymizer. Intially, pt requiring 15L oxymizer but has since been titrated to 5L and is maintaining saturations at 90-92%. Restraints removed at 1415. Pt to be COBRA transferred to [facility]. Accepting doctor confirmed. Son, Tomasz, updated on all events. No questions from him at this time.
--- NOTE | 2019-11-05 18:00 | NUR ---
HR trending 120-130's for approx 1 hr. MD notified and orders for IV Lopressor 5 MG now and to give 2100 dose of metorprolol early. Will continue to monitor.
--- NOTE | 2019-11-05 18:55 | NUR ---
pt seen today during dialysis. unstable and family at bedside speaking with physician. plan is transfer. gave loving choice book for family to review.
--- NOTE | 2019-11-05 19:39 | NUR ---
Shift Summary Pt with acute events as documented in previous notes. pt continues on oxymizer between 5-7L to maintain saturations >90% . To be COBRA transferred to [facility] pending bed availability. Pt able to take PO medications whole with water. Requires assistance with feeding. Speech remains slurred at times, expressive aphasia and pt quickly becomes frustrated when she cannot say what she is thinking. Does not use call light but yells out "I need help!". Report given to NOC RN who assumes care.
--- NOTE | 2019-11-05 19:45 | NUR ---
UPDATE PATIENT APEPARED MORE ALERT AND ORIENTED TONIGHT THAN THE PREVIOUS NIGHT AT THE BEGINNING OF THE SHIFT. HOWEVER, PATIENT SITLL APPEARS TO BE OCCATIONALLY CONFUSED AND FORGETFUL AT TIMES. PATIENT ALSO CONTINUES TO CALL OUT INSTEAD OF USING THE CALL LIGHT. PATIENT CURRENTLY RESTING IN BED AWATING PARAMEDICS TO ARRIVE TO TRANSPORT PATIENT TO [facility]. WILL CONTINUE TO MONITOR.
[2019-11-05 19:49] LABS: Vancomycin, Random 38.2 ug/mL
--- NOTE | 2019-11-05 20:15 | NUR ---
EVENT NOTE CALLED INTO ROOM BY PRIMARY RN TESSA. TESSA AT HEAD OF BED, HOLDING PRESSURE TO PERMACATH SITE. PERMACATH PARTIALLY REMOVED BY PATIENT AND ACTIVELY BLEEDING. ADVISED TESSA TO CONTINUE WITH MANUAL PRESSURE AND LEFT ROOM TO CONTACT DIALYSIS NURSE NUCLEAR MEDICINE MEDICAL DIRECTOR. COMMUNICATED CURRENT SITUATION TO AXEL MARTINEZ AND SHE ADVISED TO FINISH PULLING REMAINDER OF PERMACATH OUT AND CONTINUE MANUAL PRESSURE UNTIL BLEEDING CONTROLLED AND THEN TO PLACE A PRESSURE DRESSING. RETURNED TO ROOM AND CHECKED STATUS OF BLEEDING, CONTINUED MANUAL PRESSURE FOR APPROX 15 MINUTES WITH TOTAL HEMOSTASIS. EBL: 150 ML. VSS, NO CHANGES TO PT ASSESSMENT. PRESSURE DRESSING APPLIED WITH PARAMEDICS IN THE ROOM FOR TRANSPORT TO [facility]. ASSESSED STATUS WITH TRANSPORT TEAM AND RECOMMENDED THAT TESSA CALL REPORT AND PROVIDE EVENT SUMMARY TO [facility] SO THAT PT CAN BE EVALUATED FURTHER UPON ARRIVAL AND PLAN FOR DIALYSIS CATHETER CAN BE INITIATED.
--- NOTE | 2019-11-05 20:30 | NUR ---
UPDATE THIS RN ENTERED ROOM AT APPROX 1955 TO FIND PATIENT BLEEDING FROM PERMACATH SITE. THIS RN HAD BEEN IN ROOM WITH PATIENT ONLY MINUTES BEFORE TALKINGA AND ASSESSING PATIENT. PERMACATH APPEARED TO HAVE BEEN PARTIALLY REMOVED BY PATIENT. MANUAL PRESSURE HELD AT SITE OF BLEEDING AND CHARGE NURSE NATHAN CALLED INTO ROOM TO ASSESS AND ASSIST. (SEE NEXT NRUSE NOTE).
--- NOTE | 2019-11-05 21:00 | NUR ---
REPORT PATIENT LEFT WITH PARAMEDICS AT APPROX 2029, ALL BELONGINGS SENT WITH PATIENT. PATIENT'S SON SAMINA CALLED PER PATIENT REQUEST AND UPDATED ON CURRENT PATIENT CONDITION AND THAT PATIENT HAD LEFT FOR [facility]. [facility] NURSE SHANNON CALLED AT APROX 2039 AND REPORT GIVEN AT THAT TIME. INFORMED THAT PERMACATH HAD JUST BEEN PULLED AND THAT PATIENT HAD BLEED AND MANUAL PRESSURE WAS REQUIRED. IT WAS AGREED BY RN, CHARGE NURSE NATHAN, AND PARAMEDICS THAT PATIENT WAS STABLE ENOUGH FOR TRANSFER WHEN SHE LEFT. VITAL SIGNS CHARTED AND APPEARED STABLE.
== END 2019-11-05 20:35 | disposition short-term general hospital (02) | DRG 871 ==
LOC: ER 09:26 → PCU 13:00
PROVIDERS: Emergency Medicine; Internal Medicine Nephrology; Nurse Practitioner Acute Care; ADMIT Hospitalist
PROC: 30233N1 Transfusion of Nonautologous Red Blood Cells into Peripheral Vein, Percutaneous Approach (ICD-10-PCS; principal; 2019-11-04)
PROC: 5A1D70Z Performance of Urinary Filtration, Intermittent, Less than 6 Hours Per Day (ICD-10-PCS; 2019-11-04)
PROC: 5A09357 Assistance with Respiratory Ventilation, Less than 24 Consecutive Hours, Continuous Positive Airway Pressure (ICD-10-PCS; 2019-11-04)
DX: A41.9 Sepsis, unspecified organism (principal); I33.0 Acute and subacute infective endocarditis; I63.443 Cerebral infarction due to embolism of bilateral cerebellar arteries; N18.6 End stage renal disease; G92 Toxic encephalopathy; J81.0 Acute pulmonary edema; J96.01 Acute respiratory failure with hypoxia; I12.0 Hypertensive chronic kidney disease with stage 5 chronic kidney disease or end stage renal disease; R47.89 Other speech disturbances; E11.22 Type 2 diabetes mellitus with diabetic chronic kidney disease; Z99.2 Dependence on renal dialysis; D63.1 Anemia in chronic kidney disease; B95.2 Enterococcus as the cause of diseases classified elsewhere; K21.9 Gastro-esophageal reflux disease without esophagitis; E87.70 Fluid overload, unspecified
CPT/HCPCS: 36415; 36430; 70450; 70551; 71045; 71046; 74176; 80053; 80202; 81001; 82150; 82248; 82947; 83605; 83690; 83735; 84100; 84443; 84484; 85025; 86850; 86900; 86901; 86923; 87040; 87077; 87086; 87186; 87804; 93005; 93010; 93306; 94660; 94762; 96374; 99285-25; A9270; C1751; J0692; J0696; J0881; J1580; J1644; J2060; J2405; J2765; J3370; J7050; P9016; P9046; P9612